=== PATIENT | male | born 1950 | race Caucasian/White ===

== ENCOUNTER 2016-09-08 16:55 | Emergency (ER) | payer SELFPAY ==
[~2016-09-08 16:55] MED LIST: AMOXICILLIN500 M1 PO; CLEOCIN HCL300 M1 PO
[2016-09-08] MEDS ORDERED: NO HOME MEDICATION XX (17:18)
[2017-01-06] MEDS ORDERED: AMOXICILLIN875 M1 PO (18:34)
== END 2016-09-08 18:08 ==
LOC: EDMED 16:55
DX: H11.31 Conjunctival hemorrhage, right eye (principal)